=== PATIENT | female | born 1950 | race Caucasian/White ===

== ENCOUNTER → 2016-10-05 | Outpatient (CLI) | payer BC, MEDICARE ==
[~2016-10-05] MED LIST: ACETAMINOPHEN PO; ADVIL200 M3 PO; AUGMENTIN PO; AUGMENTIN875 M1 PO; CLEOCIN PO; COLACE PO; CRESTOR5 MG PO; DARVOCET-N 1001 TAB PO; DICYCLOMINE HCL20 MG PO; IBUPROFEN IB200 M1 PO; IBUPROFEN PO; INDERAL LA; LORTAB 5/500 TA1 TA2 PO; OMNICEF PO; PAIN RELIEF500 M1 PO; PHENERGAN25 M1 PO; PHILLIPS500 MG PO; PREMARIN PO; PROPRANOLOL PO; STOOL SOFTENER50 MG PO; TRILIPIX135 MG PO
--- NOTE | ~2016-10-05 | MY6 ---
[facility] Service of [facility] RADIOLOGY TEXT RESULTS PATIENT: SILAS BOWDEN LOCATION: [facility] : 52 UNIT #: [id number] AGE: [address]: Carmella Traylor MD SEX: F ORDER DR: [id number] [facility] [address] [place], [place] [address] [id number] O MR#: [id number] Acc #: [id number] NAME: SILAS BOWDEN : 1950 SEX: F STUDY DATE/TIME: 10/05/2016 8:26 UNIT: [facility] ROOM: STUDY DESCRIPTION: MY Mammogram Dx Dig Darío Attending Physician: Carmella Traylor M.D. Referring Physician: Carmella Traylor M.D. Ordering Physician: Carmella Traylor M.D. Primary Care Physician: Carmella Traylor M.D. MEDICAL IMAGING REPORT This report is preliminary unless electronic signature is present EXAM Diagnostic bilateral mammogram. INDICATIONS Fibrocystic breasts. Patient indicates breasts are lumpy, but no new lesions are noted by patient or physician. Patient had 3 breast biopsies in the past. There is no family history breast cancer. COMPARISON 05/28/2015, 03/24/2014, 03/07/2013. FINDINGS Today's study includes MLO, CC and ML digital views of both breasts. The study was reviewed with a FDA-approved CAD device. The breasts are heterogenously dense. There has been no change from prior studies after comparing this exam with studies all the way back to 2009. IMPRESSION No change and no evidence of malignancy. Patients over the age of 40 are entered into a reminder system with target due date for the next mammogram. A result letter will also be sent to the patient. BIRADS: 1 Negative. Dictated by... Koby Matthew M.D. THIS IS AN ELECTRONICALLY VERIFIED REPORT Koby Matthew M.D. at 10/06/2016 7:13 AM FEL/[facility]ong [facility] A Service of [facility] RADIOLOGY TEXT RESULTS PATIENT: [facility]OWDEN [id number] [birth year] UNIT #: [id number] AGE: [address]: Carmella Traylor MD SEX: F ORDER DR: TD: 10/05/2016 13:56 JOB #: [id number] MEDICAL IMAGING REPORT COPY
== END | disposition home or self-care (01) ==
LOC: CMAM 07:55
DX: N60.19 Diffuse cystic mastopathy of unspecified breast (principal)
CPT/HCPCS: G0204

== ENCOUNTER → 2016-12-23 | Day surgery (SDC) | payer BC, MEDICARE ==
--- NOTE | ~2016-12-23 | OR ---
Unit #: [id number] #: [id number] Patient: SILAS BOWDEN [id number] [address] [place], [place] [address] [id number] O MR#: [id number] NAME: SILAS BOWDEN ROOM: Date of Procedure: 12/23/2016 Admission Date: 12/23/2016 Surgeon: Nelson Palma M.D. : 1950 Attending Physician: Nelson Palma M.D. Primary Care Physician: Carmella Traylor M.D. OPERATIVE REPORT PRIMARY CARE PHYSICIAN Carmella Traylor M.D. PREOPERATIVE DIAGNOSES Colorectal cancer screening in an average-risk patient. In addition, the patient had recent episode of left lower quadrant abdominal pain and CT scan shows diverticulosis. She is currently asymptomatic and has come for screening colonoscopy. Last examination more than 12 years ago. PROCEDURES PERFORMED Colonoscopy up to cecum and terminal ileum as well as biopsy. POSTOPERATIVE DIAGNOSES 1. Single diminutive polyp in the descending colon. This was removed using cold biopsy forceps. 2. Localized sigmoid and descending colon diverticulosis. 3. Rest of the examination up to cecum and terminal ileum was normal. The quality of the prep was excellent. RECOMMENDATIONS No further intervention is indicated. The patient is advised to use high-fiber diet, to use [id number] FiberCon on a daily basis. SEDATION USED MAC. DESCRIPTION OF PROCEDURE Following detailed explanation of the potential risks and complications of a colonoscopy, namely perforation, bleeding, and complications related to sedation, the patient was brought to GI lab and laid in the left lateral decubitus position. A digital rectal examination was performed, which was normal. Lubricated tip of the Olympus video colonoscope was inserted through the anus and advanced under direct vision. The scope was advanced and passed up to sigmoid into descending colon. Multiple medium-sized diverticula were scattered in this area. The scope tip was then navigated all the way up to cecum with visualization of ileocecal valve and the appendiceal orifice. Preparation was excellent with good visualization and photodocumentation was obtained. Last few inches of the terminal ileum also visualized after intubation of the ileocecal valve and appeared normal. Successive segments of the colonic mucosa were examined upon withdrawal and appeared unremarkable except for a diminutive single sessile polyp in the proximal descending colon. The latter was removed Unit #: [id number] #: [id number] Patient: SILAS BOWDEN using cold biopsy forceps. The polyp was removed and sent for histology. No additional polyps noted. Other than the left-sided diverticula, no other abnormalities were found. The patient did not have any hemorrhoids at anal verge. The scope was then withdrawn. The patient returned to recovery area. She tolerated the procedure without any postprocedure complications. Dictated by... Magui Faulkner/yocasta TD: 12/23/2016 22:22 JOB #: [id number] CC: Carmella Traylor M.D. OPERATIVE REPORT Page 1 of 1 X Nelson Palma MD X PROCEDURE OPERATIVE NOTE
== END | disposition home or self-care (01) ==
LOC: COPS 08:51
DX: Z12.11 Encounter for screening for malignant neoplasm of colon (principal); K63.5 Polyp of colon; K57.30 Diverticulosis of large intestine without perforation or abscess without bleeding; J45.909 Unspecified asthma, uncomplicated; Z87.442 Personal history of urinary calculi; Z87.01 Personal history of pneumonia (recurrent); Z88.1 Allergy status to other antibiotic agents; Z88.5 Allergy status to narcotic agent; Z88.8 Allergy status to other drugs, medicaments and biological substances; Z79.899 Other long term (current) drug therapy; Z90.710 Acquired absence of both cervix and uterus
CPT/HCPCS: 88305; J2250